=== PATIENT | male | born 1960 ===

== ENCOUNTER 2022-04-28 06:27 | Day surgery (SDC) | payer OTHER | END 2022-04-28 14:50 | disposition home or self-care (01) | LOC: AMB-ENDOS 06:27 | PROVIDERS: ATTEND Internal Medicine Gastroenterology | DX: K63.5 Polyp of colon (principal); Z20.822 Contact with and (suspected) exposure to COVID-19; K57.30 Diverticulosis of large intestine without perforation or abscess without bleeding ==